=== PATIENT | female | born 1950 | race Caucasian/White ===

== ENCOUNTER → 2017-08-29 | Outpatient (CLI) | payer OTHER ==
--- NOTE | 2017-08-29 16:12 | EXE ---
[place] [address] STRESS ECHOCARDIOGRAM Name: ANNA LANIER Room: [facility]#: [id number] Admission: 08/29/17 Attend Phys: Saman Echeverria, Discharge: Date of : 46 Date of Service: 08/29/17 1612 Report #: [id number] THIS REPORT FOR: //name// APPROVED REPORT Study performed: 08/29/2017 11:20:23 Exam: Stress Echocardiogram Indication: Dyspnea Patient Location: Out-Patient Stress Nurse: Kamryn Sarabia RN Supervising Physician: Nick Ramirez MD Status: routine Ht: 5 ft 3 in HR: 63 bpm BP: 127/93 mmHg Procedure The patient underwent an Exercise Stress Test using the Tito Protocol. Blood pressure, heart rate, and EKG were monitored. An Echocardiogram was performed by pbx technician in four stages in quad fashion. At peak stress, four selected images were obtained and placed side by side with resting images for comparison. Stress Test Details Stress Test: Exercise stress testing was performed using a Tito protocol. HR Resting HR: 63 bpm Max Heart Rate (APMHR): 151 bpm Max HR Achieved: 154 bpm Target HR (85% APMHR): 128 bpm % of APMHR: 101 Recovery HR: 81 bpm HR response to stress: Normal HR response to stress BP Resting BP: 127/93 mmHg Max BP: 172/77 mmHg Recovery BP: 162/96 mmHg ECG Clinical Reason for Termination: Completed protocol, Dyspnea Exercise duration: 5 min 02 sec Highest Stage Achieved: Stage 2: 2.5 mph at 12% [place] [address] STRESS ECHOCARDIOGRAM Name: LANIERDARRYL BustillosANNA Room: [facility]#: [id number] Admission: 08/29/17 Attend Phys: Saman Echeverria, Discharge: Date of : 46 Date of Service: 08/29/171611 Report #: [id number] Exercise capacity: 7.03 METs Pre-Stress Echo The resting Echocardiogram showed normal left ventricular contractility with an estimated Ejection Fraction of about >55%. Normal wall motion in all segments on baseline images. Post-Stress Echo The stress Echocardiogram showed normal left ventricular contractility with an estimated Ejection Fraction of about >70%. Normal augmentation of wall motion in all segments on post stress images. Clinical Normal augmentation of myocardial wall segments using a 17 segment model. Conclusion Clinical Response: Non-ischemic Exercise Capacity: Average Stress ECG Response: Non-ischemic Stress Echo Images: Non-ischemic Other Information Study Quality: Good <ELECTRONICALLY SIGNED> By: Nick Ramirez MD, [facility] 08/29/171611 11 1612 Nick Ramirez MD, FACC /INF
== END ==
LOC: M.CRD 10:34
DX: R06.00 Dyspnea, unspecified (principal)